=== PATIENT | male | born 1970 | race Caucasian/White ===

== ENCOUNTER 2018-10-14 07:36 | Emergency (ER) | payer MEDICAID ==
[~2018-10-14] VITALS: Ht 180.3 cm; Wt 86.2 kg
[2018-10-14 07:45] VITALS: BP 143/88
== END 2018-10-14 09:39 | disposition home or self-care (01) ==
LOC: ER 07:36
DX: M54.9 Dorsalgia, unspecified (principal); R10.9 Unspecified abdominal pain; I10 Essential (primary) hypertension
CPT/HCPCS: 74176; 81002

== ENCOUNTER 2018-12-30 09:07 | Emergency (ER) | payer MEDICAID ==
[~2018-12-30] VITALS: Ht 180.3 cm; Wt 90.7 kg
[2018-12-30 09:26] VITALS: BP 158/87
[2018-12-30] MEDS ORDERED: cefTRIAXone SOD 1,000 MG VL IM ONE (10:00)
== END 2018-12-30 10:52 | disposition home or self-care (01) ==
LOC: ER 09:07
DX: K04.7 Periapical abscess without sinus (principal); J01.90 Acute sinusitis, unspecified
CPT/HCPCS: 96372; 99283; J0696

== ENCOUNTER 2019-05-17 14:16 | Emergency (ER) | payer MEDICAID ==
[~2019-05-17] VITALS: Ht 180.3 cm; Wt 90.7 kg
[2019-05-17 14:41] VITALS: BP 164/97
[2019-05-17] MEDS ORDERED: TETRACAINE HCL 0.5% OPTH(EYE) SOLN 4ML EACHEYE ONE (15:30)
[2019-05-17] MEDS ORDERED: FLUORESCEIN SOD 1 MG TEST STRIP OP ONE (15:30)
== END 2019-05-17 15:55 | disposition home or self-care (01) ==
LOC: ER 14:21
DX: S05.01XA Injury of conjunctiva and corneal abrasion without foreign body, right eye, initial encounter (principal); X58.XXXA Exposure to other specified factors, initial encounter; Y93.89 Activity, other specified; Y92.89 Other specified places as the place of occurrence of the external cause; Y99.8 Other external cause status

== ENCOUNTER → 2020-03-15 | Emergency (ER) | payer MEDICAID ==
[~2020-03-15] VITALS: Ht 180.3 cm; Wt 81.6 kg
[~2020-03-15] MED LIST: ALUM & MAG HYDROX-SIMETH LIQ(MAALOX) 30 ML PO ONE; DONNATAL 5ml ORAL Elix (BELLADONNA ALK-PHENOBARB) PO ONE; IOHEXOL 300 MG/ML 100ML BOTTLE IJ ONE; KETOROLAC TROMETH 15 mg/ml 1ML VL IV ONE; KETOROLAC TROMETH 30 MG/ML 1ML VIAL IV ONE; ONDANSETRON HCL 4 MG/2 ML VIAL IV ONE
[2020-03-15 22:11] LABS: Basophils # (auto) 0.1 10 ^3/uL (0-0.2); Basophils % (auto) 1.3 % (0.0-2.0); Eosinophils # (auto) 0.1 10 ^3/uL (0-0.8); Eosinophils % (auto) 0.9 % (0.0-7.0); Hematocrit 41.9 % (41.0-53.0); Lymphocytes # (auto) 1.3 10 ^3/uL (0.4-5.4); Lymphocytes % (auto) 19.9 % (10.0-50.0); Mean Corpuscular Hemoglobin 33.6 pg (28.0-32.0); Mean Corpuscular Hgb Conc. 33.5 g/dL (32.0-36.0); Mean Corpuscular Volume 100.2 fL (80.0-100.0); Monocytes # (auto) 0.5 10 ^3/uL (0-1.3); Neutrophils # (auto) 4.8 10 ^3/uL (1.6-8.6); Neutrophils % (auto) 70.9 % (37.0-80.0); Nucleated Red Blood Cells % 0.1 %; Platelet Count (auto) 267 10^3/uL (140-450); Red Blood Cells 4.18 10^6/uL (4.5-5.90); Red Cell Distribution Width 14.2 % (11.8-14.3); White Blood Cell 6.8 10^3/uL (4.4-10.8)
[2020-03-15 22:24] LABS: Albumin 3.4 g/dL (3.4-5.0); BUN/Creatinine Ratio 17.5; Calcium 8.1 mg/dL (8.5-10.1); Potassium 4.4 mmol/L (3.5-5.1)
[2020-03-15 22:29] LABS: Bilirubin, Total 0.7 mg/dL (0.2-1.0); Total Protein 7.3 g/dL (6.4-8.2)
[2020-03-15 22:52] LABS: Urine WBC None Seen /hpf (0 - 3)
[2020-03-15 23:00] VITALS: BP 133/94
[2020-03-15 23:21] LABS: Urine Bacteria NONE SEEN /hpf (None Seen); Urine Blood Negative /uL (Negative); Urine Specific Gravity 1.008 (1.001-1.035)
== END | disposition home or self-care (01) ==
LOC: ER 20:35
DX: K40.90 Unilateral inguinal hernia, without obstruction or gangrene, not specified as recurrent (principal); I11.0 Hypertensive heart disease with heart failure; I50.9 Heart failure, unspecified; E78.5 Hyperlipidemia, unspecified; K21.9 Gastro-esophageal reflux disease without esophagitis
CPT/HCPCS: 36415; 74177; 80053; 81001; 82150; 83690; 84484; 85025; 99284; Q9967

== ENCOUNTER 2020-06-19 05:20 | Inpatient (IN) | payer MEDICAID ==
[~2020-06-19] VITALS: Ht 180.3 cm; Wt 89.1 kg
[2020-06-19 06:24] LABS: Basophils # (auto) 0 10 ^3/uL (0-0.2); Basophils % (auto) 1.1 % (0.0-2.0); Eosinophils # (auto) 0 10 ^3/uL (0-0.8); Hematocrit 28.8 % (41.0-53.0); Hemoglobin 9.4 g/dL (13.5-17.5); Lymphocytes # (auto) 0.9 10 ^3/uL (0.4-5.4); Lymphocytes % (auto) 21.1 % (10.0-50.0); Mean Corpuscular Hemoglobin 32.5 pg (28.0-32.0); Mean Corpuscular Hgb Conc. 32.5 g/dL (32.0-36.0); Mean Corpuscular Volume 99.9 fL (80.0-100.0); Monocytes # (auto) 0.4 10 ^3/uL (0-1.3); Monocytes % (auto) 9.1 % (0.0-12.0); Neutrophils % (auto) 67.7 % (37.0-80.0); Nucleated Red Blood Cells % 0.1 %; Platelet Count (auto) 137 10^3/uL (140-450); Red Blood Cells 2.88 10^6/uL (4.5-5.90); Red Cell Distribution Width 14.5 % (11.8-14.3); White Blood Cell 4.4 10^3/uL (4.4-10.8)
[2020-06-19] MEDS ORDERED: SODIUM CHLORIDE 0.9% 1,000 ML IV ONE (06:24)
[2020-06-19 06:42] LABS: Albumin 3.6 g/dL (3.4-5.0); Calcium 7.9 mg/dL (8.5-10.1); Potassium 4.7 mmol/L (3.5-5.1)
[2020-06-19 06:46] LABS: BUN/Creatinine Ratio 15.4; Bilirubin, Total 1.3 mg/dL (0.2-1.0); Total Protein 7.2 g/dL (6.4-8.2)
[2020-06-19] MEDS ORDERED: FUROSEMIDE 40 MG/4 ML VIAL IV ONE (08:00)
[2020-06-19] MEDS ORDERED: SPIRONOLACTONE 25 MG TAB PO ONE (08:00)
[2020-06-19] MEDS ORDERED: ENALAPRILAT 1.25 MG/ML-1ML VIAL IV ONE (08:00)
[2020-06-19 09:27] LABS: Urine Bacteria NONE SEEN /hpf (None Seen); Urine Blood Negative /uL (Negative); Urine Hyaline Cast FEW /lpf (0 - 2); Urine WBC <1 /hpf (0 - 3)
[2020-06-19 09:38] LABS: Alcohol, Urine < 3.0 mg/dL (0-10); Amphetamine Screen, Urine POSITIVE (NEGATIVE); Barbiturate Scree,Urine NEGATIVE (NEGATIVE); Benzodiazephine Screen, Urine NEGATIVE (NEGATIVE); Cannabinoid Screen, Urine NEGATIVE (NEGATIVE); Cocaine Screen, Urine NEGATIVE (NEGATIVE); Opiate Scree,Urine NEGATIVE (NEGATIVE); Phencyclidine Screen, Urine NEGATIVE (NEGATIVE)
[2020-06-19 12:14] LABS: INR 1.18 (0.9-1.15); Partial Thromboplastin Time 26.8 sec (23.0-31.2)
[2020-06-19] MEDS ORDERED: hydrALAZINE HCL 20 MG/ML VL IV PRN (12:30)
[2020-06-19] MEDS ORDERED: NITROGLYCERIN 0.4 MG SL TAB SL PRN (12:30)
[2020-06-19] MEDS ORDERED: MORPHINE SULF INJ 2 MG/ML SYRINGE 1ML IV PRN ×2 (12:30)
[2020-06-19] MEDS ORDERED: ONDANSETRON HCL 4 MG/2 ML VIAL IV PRN (12:30)
[2020-06-19] MEDS ORDERED: LISI-275 PO (12:55)
[2020-06-19] MEDS ORDERED: LEVO50TA7 PO (12:55)
[2020-06-19] MEDS ORDERED: CARV3.1240 PO (12:55)
[2020-06-19] MEDS ORDERED: FURO40TA4 PO (12:55)
[2020-06-19] MEDS ORDERED: POTA8TAB2 PO (12:55)
[2020-06-19] MEDS: metroNIDAZOLE 500MG/100ML 100 ML IV SCH ×2 (15:59→22:10)
--- NOTE | 2020-06-19 18:00 | NUR ---
Telemetry admit from [facility] admitted to Telemetry unit after SBAR received. Patient oriented to Colette Modi, primary RN, unit, room, bed, and unit policies regarding patient care and visiting hours. Patient now on continuous telemetry monitoring, tele box #[id number] and telemetry reading on arrival to unit is SR Patient placed on bedside oxygen, weighed by bedscale and encouraged to call if they need something. All questions and concerns addressed, patient verbalized understanding.
--- NOTE | 2020-06-19 19:29 | NUR ---
CLOSING NOTE CARE ENDORSED TO MARCELLE MCKINNEY RN
[2020-06-19] MEDS: cefTRIAXone 1GM/50ML D5W 50 ML IV SCH (21:15)
[2020-06-19 22:00] VITALS: BP 131/79
[2020-06-19] MEDS: CARVEDILOL 3.125 MG TAB PO SCH (22:30)
[2020-06-20 06:03] VITALS: BP 136/95
[2020-06-20 06:04] LABS: Basophils # (auto) 0.1 10 ^3/uL (0-0.2); Eosinophils # (auto) 0.1 10 ^3/uL (0-0.8); Eosinophils % (auto) 0.8 % (0.0-7.0); Hematocrit 44.2 % (41.0-53.0); Hemoglobin 14.7 g/dL (13.5-17.5); Lymphocytes # (auto) 1.2 10 ^3/uL (0.4-5.4); Lymphocytes % (auto) 16.1 % (10.0-50.0); Mean Corpuscular Hemoglobin 32.5 pg (28.0-32.0); Mean Corpuscular Hgb Conc. 33.4 g/dL (32.0-36.0); Mean Corpuscular Volume 97.2 fL (80.0-100.0); Monocytes # (auto) 0.7 10 ^3/uL (0-1.3); Monocytes % (auto) 9.4 % (0.0-12.0); Neutrophils # (auto) 5.3 10 ^3/uL (1.6-8.6); Neutrophils % (auto) 72.7 % (37.0-80.0); Platelet Count (auto) 219 10^3/uL (140-450); Red Blood Cells 4.54 10^6/uL (4.5-5.90); Red Cell Distribution Width 14.4 % (11.8-14.3); White Blood Cell 7.2 10^3/uL (4.4-10.8)
[2020-06-20 06:17] LABS: Albumin 3.3 g/dL (3.4-5.0); Calcium 8.1 mg/dL (8.5-10.1)
[2020-06-20] MEDS: metroNIDAZOLE 500MG/100ML 100 ML IV SCH ×3 (06:17→22:04)
[2020-06-20 06:21] LABS: BUN/Creatinine Ratio 15.3; Bilirubin, Total 1.8 mg/dL (0.2-1.0); Total Protein 6.7 g/dL (6.4-8.2)
[2020-06-20] MEDS: LEVOTHYROXINE SODIUM 50 MCG TAB PO SCH (06:50)
[2020-06-20 09:00] VITALS: BP 140/93
[2020-06-20] MEDS ORDERED: PANTOPRAZOLE 40 MG/10 ML VIAL INJ IV SCH (10:00)
[2020-06-20] MEDS: CARVEDILOL 3.125 MG TAB PO SCH ×2 (10:33→22:04)
[2020-06-20] MEDS: LISINOPRIL 5 MG TAB PO SCH (10:33)
[2020-06-20 13:00] VITALS: BP 135/101
[2020-06-20] MEDS: cefTRIAXone 1GM/50ML D5W 50 ML IV SCH ×2 (14:08→21:03)
[2020-06-20] MEDS ORDERED: OPTISON 3ml Vial for INJ IV ONE (14:12)
--- NOTE | 2020-06-20 16:08 | NUR ---
PAGED DR CAMACHO TO NOTIFY HIM PATIENT REFUSED COVID TEST.
[2020-06-20 17:59] VITALS: BP 141/101
--- NOTE | 2020-06-20 19:30 | NUR ---
assumed care, tp. awake, no c/o pain, no sob.
[2020-06-20] MEDS: PANTOPRAZOLE 40 MG TAB PO SCH (22:05)
[2020-06-20 22:31] VITALS: BP 128/99
[2020-06-21 05:30] VITALS: BP 139/86
[2020-06-21] MEDS: metroNIDAZOLE 500MG/100ML 100 ML IV SCH (05:39)
[2020-06-21] MEDS: LEVOTHYROXINE SODIUM 50 MCG TAB PO SCH (06:02)
[2020-06-21 09:00] VITALS: BP 123/93
--- NOTE | 2020-06-21 09:14 | NUR ---
Dr. Mccollum at bedside Discussing plan of care with patient and this RN. New orders received. Patients diet advanced. Will continue to monitor Q1 hour and PRN.
[2020-06-21] MEDS: CARVEDILOL 3.125 MG TAB PO SCH (09:46)
[2020-06-21] MEDS: LISINOPRIL 5 MG TAB PO SCH (09:46)
[2020-06-21] MEDS: PANTOPRAZOLE 40 MG TAB PO SCH (09:46)
[2020-06-21] MEDS ORDERED: FUROSEMIDE 20 MG TAB PO SCH (10:00)
[2020-06-21] MEDS ORDERED: SPIRONOLACTONE 25 MG TAB PO SCH (10:00)
[2020-06-21] MEDS ORDERED: LEVOTHYROXINE SODIUM 100 MCG/5 ML INJ IV SCH (10:00)
[2020-06-21 12:54] VITALS: BP 134/92
--- NOTE | 2020-06-21 13:40 | NUR ---
Dr. Jane at [facility] MD updated this RN on plan of care, states patients is cleared by cardiology for discharge. Will continue to monitor Q1 hour and PRN.
[2020-06-21 13:53] VITALS: BP 123/93
--- NOTE | 2020-06-21 15:12 | NUR ---
Nutrition Assessment Notes Please refer to link for full assessment notes. Est Energy needs: 2916-6798 kcals (23-25 kcal/kgBW) Est Protein needs: 71-89 gms/day (0.8-1.0 gm/kgBW) Will continue to monitor and reassess prn. Addendum: 06/21/20 at [address] Amended: Links added.
--- NOTE | 2020-06-21 15:50 | NUR ---
Discharge Discharge instructions given as ordered. Encourage to follow up with PMD as instructed. All questions and concerns addressed. Patient verbalized understanding. Medication reconciliation form completed and copy given to patient. IV catheter removed, catheter intact, pressure dressing applied. environmental monitoring specialist removed and sent back to ICU. Patient taken down to private vehicle via wheelchair, with all personal belongings, accompanied by staff member. No signs or symptoms of distress noted at this time.
== END 2020-06-21 16:00 | disposition home or self-care (01) | DRG 241 ==
LOC: ER 05:20 → TELE 05:21 → TELE-WESTW 18:17
PROVIDERS: ADMIT Internal Medicine; ATTEND Internal Medicine
DX: K29.80 Duodenitis without bleeding (principal); K85.90 Acute pancreatitis without necrosis or infection, unspecified; I50.22 Chronic systolic (congestive) heart failure; D64.9 Anemia, unspecified; D69.6 Thrombocytopenia, unspecified; K80.20 Calculus of gallbladder without cholecystitis without obstruction; K56.7 Ileus, unspecified; K40.20 Bilateral inguinal hernia, without obstruction or gangrene, not specified as recurrent; K21.9 Gastro-esophageal reflux disease without esophagitis; M47.9 Spondylosis, unspecified; I11.0 Hypertensive heart disease with heart failure; E03.9 Hypothyroidism, unspecified; E78.5 Hyperlipidemia, unspecified; Q63.1 Lobulated, fused and horseshoe kidney; Z79.899 Other long term (current) drug therapy; Z82.3 Family history of stroke; Z83.3 Family history of diabetes mellitus; Z87.11 Personal history of peptic ulcer disease; Z91.14 Patient's other noncompliance with medication regimen; F15.10 Other stimulant abuse, uncomplicated
CPT/HCPCS: 36415; 71045; 74176; 76700; 78226; 80053; 80307; 81001; 82150; 83690; 83735; 83880; 84443; 85025; 85610; 85730; 93005; 93306; 96374; 96375; C9113; G0378; J0696; J2405; J3490; Q9956

== ENCOUNTER 2020-09-30 12:06 | Inpatient (IN) | payer MEDICAID ==
[~2020-09-30] VITALS: Ht 180.3 cm; Wt 79.2 kg
[2020-09-30 01:30] VITALS: BP 116/84
[~2020-09-30 12:06] MED LIST changes: -ALUM & MAG HYDROX-SIMETH LIQ(MAALOX) 30 ML PO ONE; +CARV3.1240 PO; -DONNATAL 5ml ORAL Elix (BELLADONNA ALK-PHENOBARB) PO ONE; +FURO40TA4 PO; -IOHEXOL 300 MG/ML 100ML BOTTLE IJ ONE; -KETOROLAC TROMETH 15 mg/ml 1ML VL IV ONE; -KETOROLAC TROMETH 30 MG/ML 1ML VIAL IV ONE; +LEVO50TA7 PO; +LISI-275 PO; -ONDANSETRON HCL 4 MG/2 ML VIAL IV ONE; +POTA8TAB2 PO
[2020-09-30 14:08] LABS: Hemoglobin 15.5 g/dL (13.5-17.5); Mean Corpuscular Hemoglobin 32.8 pg (28.0-32.0); Mean Corpuscular Hgb Conc. 34.5 g/dL (32.0-36.0); Mean Corpuscular Volume 94.9 fL (80.0-100.0); Platelet Count (auto) 245 10^3/uL (140-450); Red Blood Cells 4.74 10^6/uL (4.5-5.90); Red Cell Distribution Width 14.4 % (11.8-14.3); White Blood Cell 4.4 10^3/uL (4.4-10.8)
[2020-09-30 14:11] LABS: Basophils % (manual) 0 (0.0-2.0); Blast Cells 0; Eosinophils % (manual) 0 (0-7); Metamyelocytes % 0; Myelocytes % 0; Promyelocytes % 0; Reactive Lymphocytes 0
[2020-09-30 14:31] LABS: Albumin 4.2 g/dL (3.4-5.0); BUN/Creatinine Ratio 17.7; Bilirubin, Total 0.5 mg/dL (0.2-1.0); INR 1.07 (0.9-1.15); Partial Thromboplastin Time 29.6 sec (23.0-31.2); Total Protein 8.8 g/dL (6.4-8.2)
[2020-09-30 14:35] LABS: Band Neutrophils % (manual) 8; Lymphocytes % (manual) 16 (10.0-50.0); Monocytes % (manual) 19 (0-12)
[2020-09-30 15:21] LABS: Urine Bacteria NONE SEEN /hpf (None Seen); Urine Blood Negative /uL (Negative); Urine Mucus FEW (None Seen); Urine Specific Gravity 1.017 (1.001-1.035); Urine WBC None Seen /hpf (0 - 3)
[2020-09-30 15:43] LABS: Alcohol, Urine < 3.0 mg/dL (0-10); Amphetamine Screen, Urine NEGATIVE (NEGATIVE); Barbiturate Scree,Urine NEGATIVE (NEGATIVE); Benzodiazephine Screen, Urine NEGATIVE (NEGATIVE); Cannabinoid Screen, Urine NEGATIVE (NEGATIVE); Cocaine Screen, Urine NEGATIVE (NEGATIVE); Opiate Scree,Urine NEGATIVE (NEGATIVE); Phencyclidine Screen, Urine NEGATIVE (NEGATIVE)
[2020-09-30] MEDS ORDERED: MORPHINE SULF INJ 2 MG/ML SYRINGE 1ML IV PRN (16:15)
[2020-09-30] MEDS ORDERED: NITROGLYCERIN 0.4 MG SL TAB SL PRN (16:15)
[2020-09-30] MEDS ORDERED: FLUO20CA90 PO (19:01)
[2020-09-30] MEDS ORDERED: ATOR1TAB PO (19:01)
[2020-09-30] MEDS ORDERED: BENA20TA14 PO (19:01)
[2020-09-30] MEDS ORDERED: OMEP-260 PO (19:01)
[2020-09-30 20:34] LABS: Cholesterol 75 mg/dL (< 200); Triglycerides 81 mg/dL (< 150)
[2020-09-30 20:36] LABS: HDL Cholesterol 35 mg/dL (40-59); LDL Cholesterol 37 mg/dL (< 100)
[2020-10-01] MEDS: CARVEDILOL 3.125 MG TAB PO SCH ×3 (00:03→22:00)
[2020-10-01] MEDS: ATORVASTATIN 20 MG TAB PO SCH ×2 (00:04→22:04)
[2020-10-01] MEDS: GABAPENTIN 100 MG CAP PO SCH ×3 (00:04→22:04)
[2020-10-01 01:00] VITALS: BP 116/84
[2020-10-01 05:00] VITALS: BP 124/74
[2020-10-01 06:50] LABS: Hematocrit 43.5 % (41.0-53.0); Hemoglobin 14.9 g/dL (13.5-17.5); Mean Corpuscular Hemoglobin 32.5 pg (28.0-32.0); Mean Corpuscular Hgb Conc. 34.3 g/dL (32.0-36.0); Mean Corpuscular Volume 94.6 fL (80.0-100.0); Platelet Count (auto) 212 10^3/uL (140-450); Red Cell Distribution Width 14.7 % (11.8-14.3); White Blood Cell 3.9 10^3/uL (4.4-10.8)
[2020-10-01 06:57] LABS: Basophils % (manual) 0 (0.0-2.0); Blast Cells 0; Eosinophils % (manual) 0 (0-7); Metamyelocytes % 0; Myelocytes % 0; Promyelocytes % 0; Reactive Lymphocytes 0
[2020-10-01] MEDS: LEVOTHYROXINE SODIUM 50 MCG TAB PO SCH (07:03)
[2020-10-01 07:06] LABS: Albumin 3.8 g/dL (3.4-5.0); Calcium 8.7 mg/dL (8.5-10.1); Magnesium 2.4 mg/dL (1.6-2.6); Potassium 3.5 mmol/L (3.5-5.1)
[2020-10-01 07:12] LABS: Bilirubin, Total 0.5 mg/dL (0.2-1.0); Total Protein 7.9 g/dL (6.4-8.2)
[2020-10-01 08:39] LABS: Band Neutrophils % (manual) 9; Lymphocytes % (manual) 27 (10.0-50.0); Monocytes % (manual) 23 (0-12)
[2020-10-01 09:00] VITALS: BP 99/77
[2020-10-01] MEDS: BENAZEPRIL HCL 10 MG TAB PO SCH (10:00)
[2020-10-01] MEDS: PANTOPRAZOLE 40 MG TAB PO SCH (10:12)
[2020-10-01] MEDS: FLUoxetine HCL 20 MG CAP PO SCH (10:12)
[2020-10-01] MEDS: ASPirin-EC 81 mg tab PO SCH (10:13)
[2020-10-01] MEDS: ENOXAPARIN SOD 40 MG/0.4 ML SYRINGE SC SCH (10:15)
[2020-10-01 13:00] VITALS: BP 119/76
[2020-10-01 17:00] VITALS: BP 107/74
[2020-10-02 01:00] VITALS: BP 103/59
[2020-10-02 05:58] VITALS: BP 120/77
[2020-10-02] MEDS: LEVOTHYROXINE SODIUM 50 MCG TAB PO SCH (06:49)
[2020-10-02 07:08] LABS: Basophils # (auto) 0 10 ^3/uL (0-0.2); Basophils % (auto) 0.6 % (0.0-2.0); Eosinophils # (auto) 0 10 ^3/uL (0-0.8); Eosinophils % (auto) 0.6 % (0.0-7.0); Hematocrit 39.8 % (41.0-53.0); Hemoglobin 13.8 g/dL (13.5-17.5); Lymphocytes # (auto) 1.1 10 ^3/uL (0.4-5.4); Lymphocytes % (auto) 18.4 % (10.0-50.0); Mean Corpuscular Hemoglobin 32.5 pg (28.0-32.0); Mean Corpuscular Hgb Conc. 34.8 g/dL (32.0-36.0); Mean Corpuscular Volume 93.6 fL (80.0-100.0); Monocytes # (auto) 0.7 10 ^3/uL (0-1.3); Monocytes % (auto) 11.2 % (0.0-12.0); Neutrophils # (auto) 4.3 10 ^3/uL (1.6-8.6); Neutrophils % (auto) 69.2 % (37.0-80.0); Nucleated Red Blood Cells % 0.1 %; Platelet Count (auto) 193 10^3/uL (140-450); Red Blood Cells 4.25 10^6/uL (4.5-5.90); Red Cell Distribution Width 14.5 % (11.8-14.3); White Blood Cell 6.2 10^3/uL (4.4-10.8)
[2020-10-02 07:36] LABS: Potassium 3.5 mmol/L (3.5-5.1)
[2020-10-02 07:43] LABS: Albumin 3.6 g/dL (3.4-5.0); BUN/Creatinine Ratio 24.2; Bilirubin, Total 0.4 mg/dL (0.2-1.0); Calcium 8.5 mg/dL (8.5-10.1); Magnesium 2.3 mg/dL (1.6-2.6); Total Protein 7.4 g/dL (6.4-8.2)
[2020-10-02 09:00] VITALS: BP 114/69
[2020-10-02] MEDS: CARVEDILOL 3.125 MG TAB PO SCH ×2 (10:32→22:00)
[2020-10-02] MEDS: GABAPENTIN 100 MG CAP PO SCH ×2 (10:32→22:24)
[2020-10-02] MEDS: PANTOPRAZOLE 40 MG TAB PO SCH (10:33)
[2020-10-02] MEDS: FLUoxetine HCL 20 MG CAP PO SCH (10:33)
[2020-10-02] MEDS: ASPirin-EC 81 mg tab PO SCH (10:33)
[2020-10-02] MEDS: SPIRONOLACTONE 25 MG TAB PO SCH (10:34)
[2020-10-02] MEDS: ENOXAPARIN SOD 40 MG/0.4 ML SYRINGE SC SCH (10:34)
[2020-10-02] MEDS: BENAZEPRIL HCL 10 MG TAB PO SCH (10:35)
[2020-10-02 12:00] VITALS: BP 107/66
[2020-10-02 17:00] VITALS: BP 96/63
[2020-10-02] MEDS: AZITHROMYCIN 500MG/ 250ML 250 ML IV SCH (18:28)
[2020-10-02 21:40] VITALS: BP 104/62
[2020-10-02] MEDS: ATORVASTATIN 20 MG TAB PO SCH (22:24)
[2020-10-03 05:00] VITALS: BP 104/64
[2020-10-03] MEDS: LEVOTHYROXINE SODIUM 50 MCG TAB PO SCH (06:35)
[2020-10-03 07:44] LABS: Basophils # (auto) 0 10 ^3/uL (0-0.2); Basophils % (auto) 0.6 % (0.0-2.0); Eosinophils # (auto) 0 10 ^3/uL (0-0.8); Eosinophils % (auto) 1.2 % (0.0-7.0); Hematocrit 39.6 % (41.0-53.0); Hemoglobin 13.5 g/dL (13.5-17.5); Lymphocytes % (auto) 25.1 % (10.0-50.0); Mean Corpuscular Hgb Conc. 34.1 g/dL (32.0-36.0); Mean Corpuscular Volume 93.9 fL (80.0-100.0); Monocytes # (auto) 0.5 10 ^3/uL (0-1.3); Monocytes % (auto) 12.4 % (0.0-12.0); Neutrophils # (auto) 2.4 10 ^3/uL (1.6-8.6); Neutrophils % (auto) 60.7 % (37.0-80.0); Nucleated Red Blood Cells % 0.2 %; Platelet Count (auto) 189 10^3/uL (140-450); Red Blood Cells 4.22 10^6/uL (4.5-5.90); Red Cell Distribution Width 14.5 % (11.8-14.3)
[2020-10-03 08:12] LABS: Potassium 3.6 mmol/L (3.5-5.1)
[2020-10-03 08:21] LABS: Albumin 3.5 g/dL (3.4-5.0); BUN/Creatinine Ratio 22.7; Bilirubin, Total 0.6 mg/dL (0.2-1.0); Calcium 8.6 mg/dL (8.5-10.1); Magnesium 2.3 mg/dL (1.6-2.6); Total Protein 7.2 g/dL (6.4-8.2)
[2020-10-03 09:00] VITALS: BP 120/81
[2020-10-03] MEDS ORDERED: ASCORBIC ACID 500 MG TAB PO SCH ×2 (10:00)
[2020-10-03] MEDS ORDERED: CHOLECALCIFEROL (VITD3) 1,000UNIT=25mCg TAB PO SCH ×2 (10:00)
[2020-10-03] MEDS ORDERED: ZINC SULFATE 220mg CAP or TAB PO SCH (10:00)
[2020-10-03] MEDS: AZITHROMYCIN 500MG/ 250ML 250 ML IV SCH (10:07)
[2020-10-03] MEDS: SPIRONOLACTONE 25 MG TAB PO SCH (10:09)
[2020-10-03] MEDS: ASPirin-EC 81 mg tab PO SCH (10:09)
[2020-10-03] MEDS: CARVEDILOL 3.125 MG TAB PO SCH (10:09)
[2020-10-03] MEDS: GABAPENTIN 100 MG CAP PO SCH (10:10)
[2020-10-03] MEDS: FLUoxetine HCL 20 MG CAP PO SCH (10:10)
[2020-10-03] MEDS: BENAZEPRIL HCL 10 MG TAB PO SCH (10:10)
[2020-10-03] MEDS: PANTOPRAZOLE 40 MG TAB PO SCH (10:10)
[2020-10-03] MEDS: ENOXAPARIN SOD 40 MG/0.4 ML SYRINGE SC SCH (10:11)
[2020-10-03 12:50] VITALS: BP 125/74
[2020-10-03 14:32] VITALS: BP 125/74
[2020-10-03 17:00] VITALS: BP 122/74
== END 2020-10-03 19:25 | DRG 137 ==
LOC: ER 12:06 → TELE 16:16 → TELE-WESTW 23:52 → TELE-E-ADS 10-02 17:28
PROVIDERS: ADMIT Nurse Practitioner; ATTEND Nurse Practitioner
DX: U07.1 COVID-19 (principal); I69.354 Hemiplegia and hemiparesis following cerebral infarction affecting left non-dominant side; E03.9 Hypothyroidism, unspecified; I50.22 Chronic systolic (congestive) heart failure; G89.0 Central pain syndrome; E78.5 Hyperlipidemia, unspecified; J12.89 Other viral pneumonia; I07.1 Rheumatic tricuspid insufficiency; I11.0 Hypertensive heart disease with heart failure; I42.8 Other cardiomyopathies; Z79.82 Long term (current) use of aspirin; Z79.899 Other long term (current) drug therapy; Z82.3 Family history of stroke; Z91.14 Patient's other noncompliance with medication regimen; Z91.19 Patient's noncompliance with other medical treatment and regimen; Z93.1 Gastrostomy status; K21.9 Gastro-esophageal reflux disease without esophagitis; M25.512 Pain in left shoulder
CPT/HCPCS: 36415; 70450; 71045; 80053; 80061; 80307; 81001; 83735; 83880; 84484; 85007; 85025; 85027; 85610; 85730; 87081; 92610; 93005; 97110; 97163; 97530; G0378

== ENCOUNTER 2021-12-15 12:01 | Inpatient (IN) | payer MEDICAID ==
[~2021-12-15] VITALS: Ht 175.3 cm; Wt 84.1 kg
[~2021-12-15 12:01] MED LIST changes: +ATOR-47 PO; +BENA20TA14 PO; +FLUO20CA90 PO; +OMEP-260 PO
[2021-12-15 13:21] LABS: Basophils # (auto) 0.1 10 ^3/uL (0-0.2); Basophils % (auto) 0.7 % (0.0-2.0); Eosinophils # (auto) 0.1 10 ^3/uL (0-0.8); Eosinophils % (auto) 1.3 % (0.0-7.0); Hematocrit 45.1 % (41.0-53.0); Hemoglobin 15.4 g/dL (13.5-17.5); Lymphocytes # (auto) 0.8 10 ^3/uL (0.4-5.4); Lymphocytes % (auto) 9.3 % (10.0-50.0); Mean Corpuscular Hemoglobin 31.6 pg (28.0-32.0); Mean Corpuscular Hgb Conc. 34.2 g/dL (32.0-36.0); Mean Corpuscular Volume 92.5 fL (80.0-100.0); Monocytes # (auto) 0.4 10 ^3/uL (0-1.3); Monocytes % (auto) 4.3 % (0.0-12.0); Neutrophils # (auto) 7.3 10 ^3/uL (1.6-8.6); Neutrophils % (auto) 84.4 % (37.0-80.0); Nucleated Red Blood Cells % 0.1 %; Red Blood Cells 4.88 10^6/uL (4.5-5.90); Red Cell Distribution Width 13.7 % (11.8-14.3); White Blood Cell 8.6 10^3/uL (4.4-10.8)
[2021-12-15 13:35] LABS: INR 1.07 (0.9-1.15); Partial Thromboplastin Time 27.1 sec (23.6-33.0)
[2021-12-15 13:46] LABS: Calcium 8.9 mg/dL (8.5-10.1); Magnesium 3.2 mg/dL (1.6-2.6); Potassium 3.4 mmol/L (3.5-5.1)
[2021-12-15 13:53] LABS: BUN/Creatinine Ratio 15.1; Bilirubin, Total 0.5 mg/dL (0.2-1.0)
[2021-12-15] MEDS ORDERED: NITROGLYCERIN 0.4 MG SL TAB SL PRN (21:15)
[2021-12-15] MEDS ORDERED: MORPHINE SULFATE INJECTION 2 MG/ML SYRG IV PRN (21:15)
[2021-12-15] MEDS ORDERED: DOCUSATE SOD 100 MG CAP PO PRN (21:15)
[2021-12-15] MEDS ORDERED: ONDANSETRON HCL 4 MG/2 ML VIAL IV PRN (21:15)
[2021-12-15] MEDS ORDERED: hydrALAZINE HCL 20 MG/ML VL IV PRN (21:45)
[2021-12-15] MEDS: POTASSIUM CHLORIDE 8 MEQ TAB PO SCH (22:22)
[2021-12-15] MEDS: CARVEDILOL 3.125 MG TAB PO SCH (22:25)
[2021-12-15] MEDS: TEMAZEPAM 15 MG CAP PO PRN (22:26)
[2021-12-16] MEDS: LEVOTHYROXINE SODIUM 50 MCG TAB PO SCH (07:02)
[2021-12-16 07:06] LABS: Basophils # (auto) 0.1 10 ^3/uL (0-0.2); Basophils % (auto) 1.2 % (0.0-2.0); Eosinophils # (auto) 0.2 10 ^3/uL (0-0.8); Eosinophils % (auto) 3.3 % (0.0-7.0); Hematocrit 41.1 % (41.0-53.0); Lymphocytes # (auto) 1.7 10 ^3/uL (0.4-5.4); Lymphocytes % (auto) 31.4 % (10.0-50.0); Mean Corpuscular Hemoglobin 31.8 pg (28.0-32.0); Mean Corpuscular Hgb Conc. 34.1 g/dL (32.0-36.0); Mean Corpuscular Volume 93.1 fL (80.0-100.0); Monocytes # (auto) 0.5 10 ^3/uL (0-1.3); Monocytes % (auto) 9.9 % (0.0-12.0); Neutrophils # (auto) 2.9 10 ^3/uL (1.6-8.6); Neutrophils % (auto) 54.2 % (37.0-80.0); Nucleated Red Blood Cells % 0.1 %; Red Blood Cells 4.41 10^6/uL (4.5-5.90); Red Cell Distribution Width 13.8 % (11.8-14.3); White Blood Cell 5.4 10^3/uL (4.4-10.8)
[2021-12-16 07:15] LABS: Albumin 3.4 g/dL (3.4-5.0); Calcium 8.7 mg/dL (8.5-10.1); Potassium 3.4 mmol/L (3.5-5.1)
[2021-12-16 07:20] LABS: BUN/Creatinine Ratio 14.6; Bilirubin, Total 0.6 mg/dL (0.2-1.0); Total Protein 6.9 g/dL (6.4-8.2)
[2021-12-16] MEDS: CARVEDILOL 3.125 MG TAB PO SCH ×2 (09:32→21:13)
[2021-12-16] MEDS: POTASSIUM CHLORIDE 8 MEQ TAB PO SCH ×2 (09:33→21:14)
[2021-12-16] MEDS: FUROSEMIDE 40 MG TAB PO SCH (09:35)
[2021-12-16] MEDS: FLUoxetine HCL 20 MG CAP PO SCH (09:36)
[2021-12-16] MEDS: ENOXAPARIN SOD 40 MG/0.4 ML SYRINGE SC SCH (09:37)
[2021-12-16] MEDS: LISINOPRIL 5 MG TAB PO SCH (09:37)
[2021-12-16] MEDS ORDERED: PANTOPRAZOLE 40 MG TAB PO SCH (10:00)
[2021-12-16 10:24] VITALS: BP 155/95
[2021-12-16 12:30] VITALS: BP 126/76
[2021-12-16 16:40] VITALS: BP 98/62
[2021-12-16] MEDS: ATORVASTATIN 20 MG TAB PO SCH (18:20)
[2021-12-16 19:05] LABS: Amphetamine Screen, Urine NEGATIVE (NEGATIVE); Barbiturate Scree,Urine NEGATIVE (NEGATIVE); Benzodiazephine Screen, Urine NEGATIVE (NEGATIVE); Cocaine Screen, Urine NEGATIVE (NEGATIVE); Opiate Scree,Urine NEGATIVE (NEGATIVE); Phencyclidine Screen, Urine NEGATIVE (NEGATIVE)
[2021-12-16 19:12] LABS: Cannabinoid Screen, Urine POSITIVE (NEGATIVE)
[2021-12-16] MEDS: TEMAZEPAM 15 MG CAP PO PRN (21:14)
[2021-12-16 22:00] VITALS: BP 116/86
[2021-12-17 05:00] VITALS: BP 124/64
[2021-12-17] MEDS: LEVOTHYROXINE SODIUM 50 MCG TAB PO SCH (06:07)
[2021-12-17 08:00] VITALS: BP 114/71
[2021-12-17] MEDS: FUROSEMIDE 40 MG TAB PO SCH (09:26)
[2021-12-17] MEDS: FLUoxetine HCL 20 MG CAP PO SCH (09:27)
[2021-12-17] MEDS: POTASSIUM CHLORIDE 8 MEQ TAB PO SCH ×2 (09:27→22:12)
[2021-12-17] MEDS: LISINOPRIL 5 MG TAB PO SCH (09:28)
[2021-12-17] MEDS: SPIRONOLACTONE 25 MG TAB PO SCH (09:28)
[2021-12-17] MEDS: CARVEDILOL 3.125 MG TAB PO SCH ×2 (09:29→22:12)
[2021-12-17] MEDS: ENOXAPARIN SOD 40 MG/0.4 ML SYRINGE SC SCH (09:29)
[2021-12-17 12:00] VITALS: BP 101/62
[2021-12-17 16:00] VITALS: BP 121/63
[2021-12-17] MEDS: ATORVASTATIN 20 MG TAB PO SCH (18:23)
[2021-12-17 22:00] VITALS: BP 131/90
[2021-12-18 05:00] VITALS: BP 114/63
[2021-12-18] MEDS: LEVOTHYROXINE SODIUM 50 MCG TAB PO SCH (06:22)
[2021-12-18] MEDS: FUROSEMIDE 40 MG TAB PO SCH (08:52)
[2021-12-18] MEDS: SPIRONOLACTONE 25 MG TAB PO SCH (08:52)
[2021-12-18] MEDS: POTASSIUM CHLORIDE 8 MEQ TAB PO SCH ×2 (08:52→21:20)
[2021-12-18] MEDS: FLUoxetine HCL 20 MG CAP PO SCH (08:53)
[2021-12-18] MEDS: ENOXAPARIN SOD 40 MG/0.4 ML SYRINGE SC SCH (08:53)
[2021-12-18] MEDS: LISINOPRIL 5 MG TAB PO SCH (08:53)
[2021-12-18 09:00] VITALS: BP 105/76
[2021-12-18] MEDS: CARVEDILOL 3.125 MG TAB PO SCH ×2 (10:00→21:20)
[2021-12-18 13:00] VITALS: BP 106/61
[2021-12-18 17:00] VITALS: BP 109/73
[2021-12-18] MEDS: ATORVASTATIN 20 MG TAB PO SCH (18:46)
[2021-12-18 22:00] VITALS: BP 107/78
[2021-12-18] MEDS: TEMAZEPAM 15 MG CAP PO PRN (22:24)
[2021-12-19 05:00] VITALS: BP 103/61
[2021-12-19] MEDS: LEVOTHYROXINE SODIUM 50 MCG TAB PO SCH (06:02)
[2021-12-19 09:00] VITALS: BP 99/60
[2021-12-19] MEDS: FLUoxetine HCL 20 MG CAP PO SCH (10:05)
[2021-12-19] MEDS: ENOXAPARIN SOD 40 MG/0.4 ML SYRINGE SC SCH (10:05)
[2021-12-19] MEDS: SPIRONOLACTONE 25 MG TAB PO SCH (10:05)
[2021-12-19] MEDS: LISINOPRIL 5 MG TAB PO SCH (10:06)
[2021-12-19] MEDS: CARVEDILOL 3.125 MG TAB PO SCH ×2 (10:07→21:07)
[2021-12-19] MEDS: FUROSEMIDE 40 MG TAB PO SCH (10:08)
[2021-12-19] MEDS: POTASSIUM CHLORIDE 8 MEQ TAB PO SCH ×2 (10:09→21:08)
[2021-12-19] MEDS ORDERED: ATOR-47 PO ×2 (12:37→13:15)
[2021-12-19] MEDS ORDERED: BENA20TA14 PO ×2 (12:37→13:15)
[2021-12-19] MEDS ORDERED: CARV6.2551 PO ×2 (12:37→12:57)
[2021-12-19] MEDS ORDERED: FLUO20CA90 PO ×2 (12:37→13:16)
[2021-12-19] MEDS: HYDROcodone-ACET 5/325MG TAB PO PRN (14:33)
[2021-12-19] MEDS: DIPHENOXYLATE W/ATROPINE 2.5 MG TAB PO PRN (14:58)
[2021-12-19 17:00] VITALS: BP 125/75
[2021-12-19] MEDS: ATORVASTATIN 20 MG TAB PO SCH (19:43)
[2021-12-19] MEDS: TEMAZEPAM 15 MG CAP PO PRN (21:50)
[2021-12-19 22:00] VITALS: BP 124/87
[2021-12-20] MEDS: DIPHENOXYLATE W/ATROPINE 2.5 MG TAB PO PRN ×2 (03:25→10:32)
[2021-12-20 05:00] VITALS: BP 122/82
[2021-12-20] MEDS: LEVOTHYROXINE SODIUM 50 MCG TAB PO SCH (06:11)
[2021-12-20] MEDS: POTASSIUM CHLORIDE 8 MEQ TAB PO SCH ×2 (10:31→22:07)
[2021-12-20] MEDS: CARVEDILOL 3.125 MG TAB PO SCH ×2 (10:31→22:09)
[2021-12-20] MEDS: FLUoxetine HCL 20 MG CAP PO SCH (10:31)
[2021-12-20] MEDS: FUROSEMIDE 40 MG TAB PO SCH (10:31)
[2021-12-20] MEDS: SPIRONOLACTONE 25 MG TAB PO SCH (10:31)
[2021-12-20] MEDS: LISINOPRIL 5 MG TAB PO SCH (10:32)
[2021-12-20] MEDS: ENOXAPARIN SOD 40 MG/0.4 ML SYRINGE SC SCH (10:32)
[2021-12-20] MEDS: HYDROcodone-ACET 5/325MG TAB PO PRN (10:32)
[2021-12-20 12:30] VITALS: BP 111/67
[2021-12-20 17:00] VITALS: BP 127/74
[2021-12-20] MEDS: ATORVASTATIN 20 MG TAB PO SCH (18:18)
[2021-12-20 22:00] VITALS: BP 108/69
[2021-12-20] MEDS: TEMAZEPAM 15 MG CAP PO PRN (22:07)
[2021-12-21 05:00] VITALS: BP 99/71
[2021-12-21] MEDS: LEVOTHYROXINE SODIUM 50 MCG TAB PO SCH (06:28)
[2021-12-21 09:00] VITALS: BP 94/67
[2021-12-21] MEDS: LISINOPRIL 5 MG TAB PO SCH (10:00)
[2021-12-21] MEDS: SPIRONOLACTONE 25 MG TAB PO SCH (11:06)
[2021-12-21] MEDS: CARVEDILOL 3.125 MG TAB PO SCH ×2 (11:07→22:08)
[2021-12-21] MEDS: POTASSIUM CHLORIDE 8 MEQ TAB PO SCH ×2 (11:07→21:42)
[2021-12-21] MEDS: ENOXAPARIN SOD 40 MG/0.4 ML SYRINGE SC SCH (11:08)
[2021-12-21] MEDS: FLUoxetine HCL 20 MG CAP PO SCH (11:08)
[2021-12-21] MEDS: FUROSEMIDE 40 MG TAB PO SCH (11:08)
[2021-12-21 13:00] VITALS: BP 116/66
[2021-12-21 17:00] VITALS: BP 95/64
[2021-12-21] MEDS: TEMAZEPAM 15 MG CAP PO PRN (21:42)
[2021-12-21] MEDS: ATORVASTATIN 20 MG TAB PO SCH (21:42)
[2021-12-21 22:00] VITALS: BP 133/68
[2021-12-22 05:00] VITALS: BP 122/62
[2021-12-22] MEDS: LEVOTHYROXINE SODIUM 50 MCG TAB PO SCH (06:19)
[2021-12-22 09:00] VITALS: BP 111/62
[2021-12-22] MEDS: CARVEDILOL 3.125 MG TAB PO SCH ×2 (10:00→22:00)
[2021-12-22] MEDS: FUROSEMIDE 40 MG TAB PO SCH (10:00)
[2021-12-22] MEDS: ENOXAPARIN SOD 40 MG/0.4 ML SYRINGE SC SCH (10:00)
[2021-12-22] MEDS: POTASSIUM CHLORIDE 8 MEQ TAB PO SCH ×2 (10:00→22:00)
[2021-12-22] MEDS: FLUoxetine HCL 20 MG CAP PO SCH (10:00)
[2021-12-22] MEDS: LISINOPRIL 5 MG TAB PO SCH (10:00)
[2021-12-22] MEDS: SPIRONOLACTONE 25 MG TAB PO SCH (10:00)
[2021-12-22] MEDS: HYDROcodone-ACET 5/325MG TAB PO PRN ×2 (15:05→19:58)
[2021-12-22 17:00] VITALS: BP 118/80
[2021-12-22] MEDS: TEMAZEPAM 15 MG CAP PO PRN (19:58)
[2021-12-22 21:30] VITALS: BP 115/70
[2021-12-22] MEDS: ATORVASTATIN 20 MG TAB PO SCH (22:00)
[2021-12-23] MEDS: DIPHENOXYLATE W/ATROPINE 2.5 MG TAB PO PRN
[2021-12-23 04:48] VITALS: BP 110/66
[2021-12-23] MEDS: HYDROcodone-ACET 5/325MG TAB PO PRN ×2 (05:25→17:17)
[2021-12-23] MEDS: LEVOTHYROXINE SODIUM 50 MCG TAB PO SCH (06:16)
[2021-12-23 09:00] VITALS: BP 98/63
[2021-12-23] MEDS: LISINOPRIL 5 MG TAB PO SCH (10:00)
[2021-12-23] MEDS: SPIRONOLACTONE 25 MG TAB PO SCH (10:36)
[2021-12-23] MEDS: POTASSIUM CHLORIDE 8 MEQ TAB PO SCH (10:37)
[2021-12-23] MEDS: CARVEDILOL 3.125 MG TAB PO SCH (10:37)
[2021-12-23] MEDS: FUROSEMIDE 40 MG TAB PO SCH (10:38)
[2021-12-23] MEDS: FLUoxetine HCL 20 MG CAP PO SCH (10:38)
[2021-12-23] MEDS: ENOXAPARIN SOD 40 MG/0.4 ML SYRINGE SC SCH (10:39)
[2021-12-23 13:00] VITALS: BP 102/64
[2021-12-23 17:00] VITALS: BP 121/76
[2021-12-23 17:20] VITALS: BP 102/64
== END 2021-12-23 18:53 | DRG 198 ==
LOC: ER 12:01 → TELE 21:10 → TELE-WESTW 12-16 09:06
PROVIDERS: ADMIT Nurse Practitioner; ATTEND Nurse Practitioner
DX: I20.0 Unstable angina (principal); I11.0 Hypertensive heart disease with heart failure; I50.22 Chronic systolic (congestive) heart failure; E78.5 Hyperlipidemia, unspecified; R19.7 Diarrhea, unspecified; F12.90 Cannabis use, unspecified, uncomplicated; F15.10 Other stimulant abuse, uncomplicated; I07.1 Rheumatic tricuspid insufficiency; I49.9 Cardiac arrhythmia, unspecified; Z74.01 Bed confinement status; Z93.1 Gastrostomy status; Z91.19 Patient's noncompliance with other medical treatment and regimen; Z79.899 Other long term (current) drug therapy; Z82.3 Family history of stroke; Z83.3 Family history of diabetes mellitus; K21.9 Gastro-esophageal reflux disease without esophagitis; Z86.73 Personal history of transient ischemic attack (TIA), and cerebral infarction without residual deficits; Z20.822 Contact with and (suspected) exposure to COVID-19
CPT/HCPCS: 36415; 71045; 80053; 80061; 80307; 83036; 83735; 83880; 84443; 84484; 85025; 85379; 85610; 85730; 87081; 87426; 93005; 93306; 97110; 97163; 97530; G0378; J2405